=== PATIENT | male | born 1955 | race Caucasian/White ===

== ENCOUNTER 2016-11-10 06:16 | Inpatient (IN) | payer BC ==
[~2016-11-10] VITALS: Ht 177.8 cm; Wt 133.0 kg
[~2016-11-10 06:16] MED LIST: AMLODIPINE-BEN1 EAC5 PO; BISOPROLOL FUMA10 MG PO; COLACE100 MG PO; COMBIVENT RESPIM4 GM IH; CRESTOR20 MG PO; DOXYCYCLINE HY100 M3 PO; ECOTRIN325 MG PO; ENEMA133 M2 PR; FERROUS GLUCON324 MG PO; HYDROCHLOROTHIA25 MG PO; LOTREL 10/21 CAPSULE PO; METFORMIN HCL750 MG PO; MIRALAX255 GM PO; NICORETTE4 MG BC; OMNICEF300 MG PO; OXAYDO5 MG PO; PREDNISONE20 MG PO; PROVENTIL HFA6.7 GM IH; REGLAN10 MG PO; SPIRIVA1 INHALATI IH; SYMBICORT60 INHALAT IH; ZOHYDRO ER15 M1 PO
[2016-11-10 06:57] LABS: EOSINOPHIL (%) 1.8 % (0-5); EOSINOPHIL COUNT 0.2 K/uL (0-0.3); HEMATOCRIT 32.1 % (38.0-50.0); IMMATURE GRANULOCYTE (%) 0.6 % (0.0-0.7); IMMATURE GRANULOCYTE COUNT 0.1 K/uL; INSTRUMENT ABS NEUTROPHIL CT 6.8 K/uL; MCH 25.6 PG (29.0-34.0); MCHC 30.2 G/DL (30.0-36.0); MCV 84.7 FL (86-99); MEAN PLAT.VOLUME 11.7 uM^3 (9.0-12.4); MONOCYTE (%) 10.8 % (3-12); NEUTROPHIL (%) 75.4 % (45-76); NEUTROPHIL COUNT 6.8 K/uL (1.8-6.4); PLATELET COUNT 380 K/uL (156-360); RBC DIS.WIDTH-CV 19.4 % (11.8-14.6); RED BLOOD COUNT 3.79 M/uL (4.00-5.50)
[2016-11-10 07:31] LABS: D-DIMER ELISA > 4.00 mg/L FEU (< 0.57)
[2016-11-10 07:48] LABS: ANION GAP 11 MEQ/L (2-14); CHLORIDE 97 MEQ/L (99-109); POTASSIUM 4.5 MEQ/L (3.7-5.4); SAMPLE HEMOLYSIS CHECK 0; SAMPLE ICTERIC CHECK 0; SAMPLE LIPEMIA CHECK 0; SODIUM 136 MEQ/L (136-147)
[2016-11-10 07:53] LABS: GFR ESTIMATE (CALCULATED) 47 mL/min/; GLUCOSE 106 mg/dL (70-99); UREA NITROGEN (BUN) 33 mg/dL (9-23)
[2016-11-10] MEDS ORDERED: VITAMIN A10000 UNIT PO (10:39)
[2016-11-10] MEDS ORDERED: TYLENOL EXTRA500 MG PO (10:39)
[2016-11-10] MEDS ORDERED: BREO ELLIPTA I1 EACH IH (10:40)
[2016-11-10] MEDS ORDERED: DUONEB 2.5-0.5 M3 ML AEROSOL (10:40)
[2016-11-10] MEDS ORDERED: GLUCOPHAGE XR750 MG PO (10:41)
[2016-11-10] MEDS ORDERED: LO-DOSE ASPIRIN81 M2 PO (10:47)
[2016-11-10] MEDS ORDERED: FUROSEMIDE20 MG PO (10:48)
[2016-11-10] MEDS ORDERED: BACLOFEN10 MG PO (10:49)
[2016-11-10] MEDS ORDERED: VITAMIN D5000 UNI1 PO (10:50)
[2016-11-10] MEDS ORDERED: LOTREL 10/41 CAPSULE PO (10:51)
[2016-11-10] MEDS ORDERED: BACTRIM,SEPT1 TABLET PO (10:52)
[2016-11-10 11:59] LABS: INFLUENZA A VIRAL ANTIGEN NEGATIVE; INFLUENZA B VIRAL ANTIGEN NEGATIVE
[2016-11-10 12:36] VITALS: BP 140/63
[2016-11-10] MEDS ORDERED: INCRUSE ELLI62.5 MCG IH (14:39)
[2016-11-10 15:26] VITALS: BP 117/65
[2016-11-10 19:55] VITALS: BP 119/56
[2016-11-10 21:55] LABS: POINT-OF-CARE METER ID UU14188625
[2016-11-10 23:58] VITALS: BP 134/69
[2016-11-11 04:03] VITALS: BP 135/82
[2016-11-11 07:21] VITALS: BP 125/75
[2016-11-11 07:28] LABS: POINT-OF-CARE METER ID UU14188625
[2016-11-11 08:54] LABS: INTERNAL CONTROL VALID? YES
[2016-11-11 11:08] LABS: POINT-OF-CARE METER ID UU14174225
[2016-11-11 11:13] VITALS: BP 128/72
[2016-11-11 11:35] LABS: EOSINOPHIL (%) 0 % (0-5); HEMATOCRIT 30.4 % (38.0-50.0); IMMATURE GRANULOCYTE (%) 0.4 % (0.0-0.7); INSTRUMENT ABS NEUTROPHIL CT 6.4 K/uL; LYMPHOCYTE COUNT 0.9 K/uL (1.0-2.8); MCH 25.5 PG (29.0-34.0); MCHC 30.3 G/DL (30.0-36.0); MCV 84.2 FL (86-99); MEAN PLAT.VOLUME 11.7 uM^3 (9.0-12.4); MONOCYTE (%) 8.9 % (3-12); MONOCYTE COUNT 0.7 K/uL (0-0.8); NEUTROPHIL (%) 79.8 % (45-76); NEUTROPHIL COUNT 6.4 K/uL (1.8-6.4); PLATELET COUNT 315 K/uL (156-360); RBC DIS.WIDTH-SD 58.9 % (39-53); RED BLOOD COUNT 3.61 M/uL (4.00-5.50)
[2016-11-11 12:39] LABS: ANION GAP 12 MEQ/L (2-14); CHLORIDE 103 MEQ/L (99-109); GFR ESTIMATE (CALCULATED) > 59 mL/min/; GLUCOSE 128 mg/dL (70-99); POTASSIUM 4.6 MEQ/L (3.7-5.4); SAMPLE HEMOLYSIS CHECK 0; SAMPLE ICTERIC CHECK 0; SAMPLE LIPEMIA CHECK 0; SODIUM 139 MEQ/L (136-147); UREA NITROGEN (BUN) 28 mg/dL (9-23)
[2016-11-11 13:45] LABS: METH RESISTANT S AUREUS PCR NEGATIVE (NEGATIVE); PROBE CHECK PASS; SPECIMEN PROCESSING CONTROL PASS
[2016-11-11 15:05] VITALS: BP 118/56
[2016-11-11 19:16] VITALS: BP 120/63
[2016-11-12 00:21] VITALS: BP 125/61
[2016-11-12 03:22] VITALS: BP 112/70
[2016-11-12 07:19] LABS: POINT-OF-CARE METER ID UU14188625
[2016-11-12 07:35] VITALS: BP 140/76
[2016-11-12] MEDS ORDERED: LEVAQUIN750 MG PO (08:17)
[2016-11-12 08:45] LABS: INTERNAL CONTROL VALID? YES
[2016-11-12 11:05] VITALS: BP 147/75
[2016-11-12 11:05] LABS: POINT-OF-CARE METER ID UU14188625
== END 2016-11-12 12:26 | disposition home health service (06) | DRG 190 ==
LOC: EME 06:16 → EDOF 10:06 → 5SOUTH 12:33
PROVIDERS: Emergency Medicine; Internal Medicine
DX: J44.0 Chronic obstructive pulmonary disease with (acute) lower respiratory infection (principal); J18.9 Pneumonia, unspecified organism; N17.9 Acute kidney failure, unspecified; J96.10 Chronic respiratory failure, unspecified whether with hypoxia or hypercapnia; N28.1 Cyst of kidney, acquired; E66.01 Morbid (severe) obesity due to excess calories; Z68.41 Body mass index [BMI] 40.0-44.9, adult; E11.9 Type 2 diabetes mellitus without complications; I10 Essential (primary) hypertension; Z87.891 Personal history of nicotine dependence; D63.8 Anemia in other chronic diseases classified elsewhere; G47.30 Sleep apnea, unspecified; J98.11 Atelectasis
CPT/HCPCS: 36415; 71020; 71275; 76770; 80048; 80202; 82565; 82948; 85025; 85379; 87040; 87070; 87075; 87077; 87147; 87186; 87205; 87449; 87502; 87641; 93005; 94640; 94640 76; 94668; 99202; 99281; 99285; J0456; J1644; J1815; J2270; J2543; J2920; J3370; J7030; J7050

== ENCOUNTER 2017-11-13 01:56 | Inpatient (IN) | payer BC ==
[~2017-11-13] VITALS: Ht 177.8 cm; Wt 142.7 kg
[~2017-11-13 01:56] MED LIST changes: +BACLOFEN10 MG PO; +BACTRIM,SEPT1 TABLET PO; +BREO ELLIPTA I1 EACH IH; +DUONEB 2.5-0.5 M3 ML AEROSOL; +FUROSEMIDE20 MG PO; +GLUCOPHAGE XR750 MG PO; +INCRUSE ELLI62.5 MCG IH; +LEVAQUIN750 MG PO; +LO-DOSE ASPIRIN81 M2 PO; +TYLENOL EXTRA500 MG PO; +VITAMIN A10000 UNIT PO; +VITAMIN D5000 UNI1 PO
[2017-11-13 02:23] LABS: HEMATOCRIT 35.4 % (38.0-50.0); HEMOGLOBIN 11.5 G/DL (12.5-16.6); MCH 28.8 PG (29.0-34.0); MCHC 32.5 G/DL (30.0-36.0); MCV 88.5 FL (86-99); PLATELET COUNT 172 K/uL (156-360); RBC DIS.WIDTH-SD 54.7 % (39-53); WHITE BLOOD COUNT 14.7 K/uL (4.1-10.2)
[2017-11-13 02:43] LABS: TROP-I INTERPRETATION NEGATIVE; TROPONIN-I < 0.01 ng/mL (0.0-0.30)
[2017-11-13 03:24] LABS: CHLORIDE 98 mEq/L (99-109); POTASSIUM 4.1 mEq/L (3.7-5.4); SODIUM 137 mEq/L (136-147)
[2017-11-13 03:26] LABS: GLUCOSE 130 mg/dL (70-99)
[2017-11-13 03:30] LABS: CREATININE 1.3 mg/dL (0.6-1.3); GFR ESTIMATE (CALCULATED) > 59 mL/min/ (58.99-99999)
[2017-11-13 03:31] LABS: UREA NITROGEN (BUN) 24 mg/dL (9-23)
[2017-11-13 03:44] LABS: INTER. NORMALIZED RATIO 1.3
[2017-11-13 03:46] LABS: TOTAL PROTEIN 7.4 g/dL (6.4-8.3)
[2017-11-13 03:47] LABS: PTT 29.9 SEC (25-37)
[2017-11-13 03:48] LABS: TOTAL BILIRUBIN 0.8 mg/dL (0.0-1.0)
[2017-11-13 03:49] LABS: ALKALINE PHOSPHATASE 75 IU/L (3-129)
[2017-11-13 03:52] LABS: ALT (GPT) 15 IU/L (3-49); AST (GOT) 16 IU/L (2-34); DIRECT BILIRUBIN 0.4 mg/dL (0.0-0.3)
[2017-11-13 03:53] LABS: LIPASE 5 U/L (1.0-51.0)
[2017-11-13 09:27] VITALS: BP 129/60
[2017-11-13 12:09] VITALS: BP 117/64
[2017-11-13 13:01] LABS: TROP-I INTERPRETATION NEGATIVE; TROPONIN-I < 0.01 ng/mL (0.0-0.30)
[2017-11-13 16:25] VITALS: BP 108/54
[2017-11-13 18:16] LABS: TROP-I INTERPRETATION NEGATIVE; TROPONIN-I 0.01 ng/mL (0.0-0.30)
[2017-11-13 20:37] VITALS: BP 121/56
[2017-11-14] VITALS: BP 129/62
[2017-11-14 05:48] VITALS: BP 145/69
[2017-11-14 07:35] LABS: HEMATOCRIT 36.6 % (38.0-50.0); HEMOGLOBIN 11.6 G/DL (12.5-16.6); MCHC 31.7 G/DL (30.0-36.0); MCV 88.4 FL (86-99); PLATELET COUNT 148 K/uL (156-360); RBC DIS.WIDTH-CV 16.9 % (11.8-14.6); RBC DIS.WIDTH-SD 55.3 % (39-53); RED BLOOD COUNT 4.14 M/uL (4.00-5.50); WHITE BLOOD COUNT 10.8 K/uL (4.1-10.2)
[2017-11-14 07:52] LABS: CHLORIDE 100 MEQ/L (99-109); CREATININE 1.2 MG/DL (0.6-1.3); GFR ESTIMATE (CALCULATED) > 59 mL/min/ (58.99-99999); GLUCOSE 177 mg/dL (70-99); POTASSIUM 3.9 MEQ/L (3.7-5.4); SODIUM 136 MEQ/L (136-147); UREA NITROGEN (BUN) 26 mg/dL (9-23)
[2017-11-14 08:14] VITALS: BP 141/72
[2017-11-14] MEDS ORDERED: LOTREL 10/41 CAPSULE PO (09:41)
[2017-11-14] MEDS ORDERED: PREDNISONE10 MG PO (10:03)
[2017-11-14] MEDS ORDERED: LEVAQUIN750 MG PO (10:03)
== END 2017-11-14 12:17 | disposition home or self-care (01) | DRG 191 ==
LOC: EME 01:56 → EDOF 06:56 → 5SOUTH 06:56 → EDOF 06:56 → ENRESERV 07:05 → 5SOUTH 09:08
PROVIDERS: Hospitalist
DX: J44.1 Chronic obstructive pulmonary disease with (acute) exacerbation (principal); R04.2 Hemoptysis; I10 Essential (primary) hypertension; E11.9 Type 2 diabetes mellitus without complications; E78.5 Hyperlipidemia, unspecified; G47.33 Obstructive sleep apnea (adult) (pediatric); F17.210 Nicotine dependence, cigarettes, uncomplicated; E66.01 Morbid (severe) obesity due to excess calories; Z68.42 Body mass index [BMI] 45.0-49.9, adult; Z91.19 Patient's noncompliance with other medical treatment and regimen; Z79.84 Long term (current) use of oral hypoglycemic drugs; Z79.82 Long term (current) use of aspirin
CPT/HCPCS: 71045; 71046; 71275; 80048; 80076; 81003; 83605; 83690; 83880; 84484; 85027; 85379; 85610; 85730; 87040; 87070; 87205; 87641; 93005; 93306; 93970; 94640 76; 94660; 94799; 99202; 99281; 99285; J0696; J1650; J1956; J2543; J3370; J7030; J7050; J7512